=== PATIENT | female | born 1975 | race Caucasian/White ===

== ENCOUNTER 2017-11-26 21:40 | Emergency (ER) | payer MEDICAID ==
[~2017-11-26] VITALS: Ht 160 cm; Wt 54.4 kg
[2017-11-26 21:40] VITALS: BP 130/67
--- NOTE | 2017-11-26 22:50 | NUR ---
PATIENT TO RADIOLOGY.
[2017-11-26 23:21] LABS: BASOPHILS # (AUTO) 0.1 /CMM (0.0-0.2); BASOPHILS % (AUTO) 0.6 % (0.0-2.0); EOSINOPHILS % (AUTO) 1.4 % (0.0-6.0); HEMATOCRIT 35 % (33-45); HEMOGLOBIN 11.8 g/dL (11.5-14.8); LYMPHOCYTES # (AUTO) 2.7 /CMM (0.8-4.8); LYMPHOCYTES % (AUTO) 29.6 % (20.0-44.0); MEAN CORPUSCULAR HGB CONC 34 g/dl (31.0-36.0); MEAN CORPUSCULAR VOLUME 91 fL (82-100); MONOCYTES # (AUTO) 0.8 /CMM (0.1-1.30); MONOCYTES % (AUTO) 8.3 % (2.0-12.0); NEUTROPHILS # (AUTO) 5.4 /CMM (1.8-8.9); NEUTROPHILS % (AUTO) 60.1 % (43.0-81.0); PLATELET COUNT (AUTO) 247 /CMM (150-450); RDW COEFFICIENT OF VARIATION 14.9 (11.5-15.0); RED BLOOD CELL COUNT(AUTO) 3.87 MIL/uL (4.0-5.2)
[2017-11-26 23:33] LABS: CALCIUM, SERUM 8.4 mg/dL (8.5-10.1); CREATININE 0.7 mg/dL (0.6-1.3); POTASSIUM 3.9 mmol/L (3.5-5.1)
[2017-11-26 23:35] LABS: PHENYTOIN (DILANTIN) 13.8 ug/ml (10.0-20.0)
== END 2017-11-27 02:10 | disposition home or self-care (01) ==
LOC: ER 21:45 → EDSEX 21:45 → ER 11-27 02:10
DX: M79.671 Pain in right foot (principal); M79.672 Pain in left foot; G40.909 Epilepsy, unspecified, not intractable, without status epilepticus; M19.071 Primary osteoarthritis, right ankle and foot; N39.0 Urinary tract infection, site not specified; F10.10 Alcohol abuse, uncomplicated; F17.200 Nicotine dependence, unspecified, uncomplicated; Z88.0 Allergy status to penicillin; Z59.0 Homelessness
CPT/HCPCS: 36415; 73630-TC; 80048-TC; 80185-TC; 85025-TC; A4606; Z7610